=== PATIENT | female | born 1980 | race Caucasian/White ===

== ENCOUNTER → 2020-12-21 | Outpatient (CLI) | payer BC ==
--- NOTE | 2020-12-21 11:43 | KCIC ---
EXAM: XR THORACIC SPINE 3VIEWS 12/21/2020 10:08 AM CLINICAL INDICATION: Mid to lower thoracic back pain since august COMPARISON: None TECHNIQUE: 3 views of the thoracic spine FINDINGS: There is minimal leftward curvature of the upper lumbar spine. No acute fracture or malali gnment of the thoracic spine. Disc spaces are maintained. IMPRESSION: No degenerative disc disease or acute osseous abnormality. Electronically signed by: Sheila Reich MD (12/21/2020 11:41 AM) [id number]
== END ==
LOC: KCIC 10:04
PROVIDERS: ATTEND Nurse Practitioner Gerontology
DX: M43.8X6 Other specified deforming dorsopathies, lumbar region (principal)
CPT/HCPCS: 72072

== ENCOUNTER → 2021-02-05 | Outpatient (CLI) | payer BC ==
[~2021-02-05] MED LIST: BUPIVACAINE MPF 0.25% 10 ML VIAL. ONE; OMEP40CA7 PO; methylPREDNISolone ACETATE 40 MG/ML VIAL. ONE
--- NOTE | 2021-02-05 13:10 | PDOC1 ---
INITIAL PAIN CONSULT DATE OF SERVICE: DOS: DATE: 02/05/21 TIME: 13:01 CHIEF COMPLAINT: Chief Complaint: Upper mid back pain, and right shoulder pain HISTORY OF PRESENT ILLNESS: 41-year-old female presents with history of pain in the mid upper back on the right side of the right posterior shoulder since October 2020 not the result of any specific injury or accident that she is aware of is getting worse with time and with use of the right upper extremity with just normal daily activities. Patient reports the pain is fairly well localized around the right posterior scapular region occasional radiation laterally but mostly in the right upper mid back itself. Patient reports she has had some dry needling as well as chiropractic treatment and exercises she does currently without a significant decrease in pain the dry needling was helpful temporarily as were some oral steroids she is also taking Flexeril and anti-inflammatories nonsteroidal which are not helpful patient reports pain is throbbing cramping and aching in the right upper back and shoulder posteriorly changes during the day with activity awakens her from sleep about 3 times a night on average. Patient reports is not effective bowel bladder control or ability to walk she has been to been functioning normal activities including up with the pain. Patient rates her disability rating 0-10 10 me the worst is a 7 with family home responsibilities 8 with recreation social activity occupation 7 life support activities 0 sexual behavior and self-care activities. Patient have MRI scan with and without contrast of the thoracic spine showing small syrinx without abnormal postcontrast enhancement or intramedullary mass disc spaces and facets are preserved no acute osseous abnormality or suspicious marrow lesions. Syrinx show small syrinx beginning at the T5-6 level continuing to the T9-10 level and seen again at the T11-12 level. Patient reports no loss of motor function but significant fatigability with the right shoulder with repetitive motion, reaching or weightbearing. PAST MEDICAL HISTORY: PMH: Basal skin cell carcinoma, gastroesophageal reflux PREVIOUS SURGERIES: Past Surgical Hx: Laparoscopy, wisdom teeth extraction CURRENT MEDICATIONS: Current Meds: Active Scripts Medications Dose Route/Sig Max Daily Dose Days Date Category Omeprazole 40 Mg Capsule. 1 Cap PO DAILY 02/05/21 Reported ALLERGIES; Allergies: Coded Allergies: amoxicillin (Verified Allergy, Unknown, Hives, 02/05/21) erythromycin base (Verified Allergy, Unknown, Nausea and Vomiting, 02/05/21) Uncoded Allergies: berries (Allergy, Severe, throat swells, 02/05/21) FAMILY HISTORY: Family Hx: Cancers SOCIAL HISTORY: Social Hx: Patient drinks alcohol occasionally once or twice a week does not smoke says any illegal illicit or recreational drugs is lives with her spouse lives in one child, at home, lives locally in [facility] REVIEW OF SYSTEMS: ROS: Positive for those items mentioned in history of present illness, all systems are reviewed, otherwise negative ,and are complete full and well-documented on patient's chart. PHYSICAL EXAM: VS: Blood pressure is 116/78 pulse 81 respirations 16 temperature 98.8 F feet 2 inches weight is 142 pounds PE: PHYSICAL EXAMINATION: GENERAL: The patient is awake, alert, oriented, appropriate, very pleasant in demeanor. HEENT: Shows normocephalic, atraumatic. Extraocular movements are intact and symmetrical. Oral cavity: Mucous membranes moist and pink. Dentition is intact. NECK: Shows anterior throat supple without palpable lymphadenopathy noted. Swallow reflex symmetrical. CHEST: Shows normal on inspection. Breath sounds are clear bilaterally, no rales rhonchi or wheeze auscultated. HEART: Shows S1, S2 clear. No murmurs auscultated. ABDOMEN: Soft, nontender, nondistended. No palpable organomegaly is noted. BACK: Shows spine grossly in the midline. Normal-appearing cervical lordotic curvature. Cervical paraspinous muscles show symmetrical with inspection, palpation shows some moderate tenderness diffusely in the inferior aspect cervical paraspinous musculature. Patient shows full rotation motion cervical spine both laterally as well as extension flexion without significant difficulty or limitation. Upper back shows significant tenderness over the right rhomboid in the inferior aspect of the medial border of the scapula and inferior border as well as the trapezius superior to this and the infraspinatus musculature over the scapula itself on the right side only very firm ropelike musculature consi stent with areas of trigger point muscle left side is nontender. There is slightly increased thoracic kyphosis, some minor flattening of the lumbar lordotic curvature. EXTREMITIES: Lower extremities show deep tendon reflexes 2+ in the patellar and tendo calcaneus tendons. Motor exam is 5 on a scale of 5 with right dorsiflexion, extension, quadriceps and hamstring flexion and 5/5 on the left. Peripheral pulses are 2+ posterior tibial. No peripheral edema is noted bilaterally. Lower extremities are warm and dry to touch, equal in color and appearance. 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 Shoulder shrug strong and intact without loss of strength on resistance as is abduction of the shoulder 90 degrees without loss of strength on resistance bilaterally. SKIN: Shows warm and dry, good turgor. No edema. No sores, rashes or bruising throughout. IMPRESSION: Impression: 41-year-old female with approximate 4-month history increasing pain mid upper back and right posterior scapular region consistent with areas of myofascial pain. Esophageal reflux History of basal skin carcinoma Plan: Options were discussed with the patient including surgical management continued physical therapies and interventional techniques. Patient elects inte rventional techniques we discussed trigger point injections using description as well as anatomical models to describe the procedure. Risks were discussed including but limited to bleeding infection possibility of intravascular injection sequelae spread local anesthetic numbness pneumothorax side effects of steroid medication and poor results regarding pain control. Patient understands wishes to proceed. Patient will return to the clinic in approximately 4 weeks for follow-up. Patient was counseled as activity level as well as side effects to be aware of. Patient sitting position under sterile prep and drape patient's right scapular region was sterilely prepped and trigger point identified in the right rhomboid musculature, right trapezius musculature and right infraspinatus musculature using 25-gauge needle were injected after negative aspiration each injection site for total of 6 cc 0.25% ropivacaine a total of 40 mg Depo-Medrol. Patient alert procedure well and had no complications. LIANNA STEINER MD Feb 05, 2021 13:09
--- NOTE | 2021-02-05 13:10 | PDOC4 ---
Procedure Note: Procedure Note: Patient was consented for trigger point injections. Risk were discussed including but not limited to bleeding infection possibility of intravascular injection sequelae spread local anesthetic numbness pneumothorax side effects steroid medication portals regarding pain control. Patient understands wished to proceed. Patient sitting position under sterile prep and drape patient's right scapular region was sterilely prepped and trigger point identified in the right rhomboid musculature, right trapezius musculature and right infraspinatus musculature using 25-gauge needle were injected after negative aspiration each injection site for total of 6 cc 0.25% ropivacaine a total of 40 mg Depo-Medrol. Patient alert procedure well and had no complications. LIANNA STEINER MD Feb 05, 2021 13:10
== END | disposition home or self-care (01) ==
LOC: PNCL 10:03
PROVIDERS: ATTEND Anesthesiology
DX: M25.511 Pain in right shoulder (principal); M54.89 Other dorsalgia; K21.9 Gastro-esophageal reflux disease without esophagitis; M79.18 Myalgia, other site; Z85.828 Personal history of other malignant neoplasm of skin; Z79.899 Other long term (current) drug therapy; Z98.890 Other specified postprocedural states; Z88.1 Allergy status to other antibiotic agents; Z88.8 Allergy status to other drugs, medicaments and biological substances
CPT/HCPCS: 20553; J1030; J3490